=== PATIENT | female | born 2000 | race Asian ===

== ENCOUNTER 2021-05-13 19:48 | Emergency (ER) | payer BC, MEDICAID ==
[~2021-05-13] VITALS: Ht 167.6 cm; Wt 48.5 kg
[2021-05-13 20:21] VITALS: BP_SYST 112
[2021-05-13] MEDS ORDERED: ASPIRIN 81 MG TAB.CHEW PO ONE (20:45)
[2021-05-13 21:06] LABS: BASOPHILS % (AUTO) 0.5 % (0.0-2.0); EOSINOPHILS # (AUTO) 0.1 K/uL (0.0-0.4); EOSINOPHILS % (AUTO) 2.4 % (0.0-4.0); HEMATOCRIT 39.7 % (36-48); HEMOGLOBIN 13.1 g/dL (12.0-16.0); LYMPHOCYTES # (AUTO) 2.2 K/uL (1.0-5.5); LYMPHOCYTES % (AUTO) 38.6 % (20.5-51.5); MEAN CORPUSCULAR HEMOGLOBIN 27 pg (27-31); MEAN CORPUSCULAR HGB CONC 33 % (32-36); MEAN CORPUSCULAR VOLUME 82 fL (79.0-98.0); MONOCYTES # (AUTO) 0.4 K/uL (0.0-1.0); MONOCYTES % (AUTO) 7.9 % (1.7-9.3); NEUTROPHILS # (AUTO) 2.9 K/uL (1.8-7.7); NEUTROPHILS % (AUTO) 50.6 % (40.0-70.0); PLATELET COUNT (AUTO) 175 K/uL (130-430); RED BLOOD CELL COUNT(AUTO) 4.86 MIL/uL (4.2-6.2); RED CELL DISTRIBUTION WIDTH 13.5 % (9.0-15.0); WHITE BLOOD COUNT (AUTO) 5.7 K/uL (4.8-10.8)
[2021-05-13 21:28] LABS: CREATININE 0.71 mg/dL (0.55-1.30)
[2021-05-13 21:46] LABS: TOTAL BILIRUBIN 0.3 mg/dL (0.0-1.0)
[2021-05-13 21:47] LABS: ALBUMIN 4.4 g/dL (3.4-4.8)
[2021-05-13 23:45] VITALS: BP_SYST 135
== END 2021-05-13 23:45 | disposition home or self-care (01) ==
LOC: SED 19:48
DX: R07.89 Other chest pain (principal)
CPT/HCPCS: 36415; 71045; 80053; 83690; 83880; 84484; 84702; 85025; 93005; 99285

== ENCOUNTER 2021-05-15 00:27 | Emergency (ER) | payer MEDICAID ==
[2021-05-15 00:50] VITALS: BP_SYST 127
--- NOTE | 2021-05-15 00:50 | NUR ---
Patient to ER bed 7 to gown for evaluation. Side rails up. Report given to self.
--- NOTE | 2021-05-15 01:05 | NUR ---
Urine specimen collected and analyzed in ER (dip). Results given to ALEX VANCE.
--- NOTE | 2021-05-15 01:08 | NUR ---
ER Dr. Michael at bedside examining patient.
[2021-05-15] MEDS ORDERED: OMEP40CA20 PO (01:45)
[2021-05-15] MEDS ORDERED: IBUP-1969 PO (01:45)
[2021-05-15] MEDS ORDERED: KETOROLAC TROMETHAMINE 60 MG/2 ML VIAL IM ONE (01:45)
[2021-05-15] MEDS ORDERED: MAG HYDROX/AL HYDROX/SIMETH 30 ML, DICYCLOMINE HCL 20 MG, LIDOCAINE VISCOUS 2% 15ML (PO... PO ONE ×3 (01:45)
[2021-05-15] MEDS ORDERED: ONDA4TAB5 PO (01:45)
--- NOTE | 2021-05-15 01:54 | NUR ---
patient medicated as ordered. will observe for any adverse reaction. bed to low position sr up, continue to monitor level of comfort.
--- NOTE | 2021-05-15 02:38 | NUR ---
Patient given written and verbal discharge instructions and verbalizes understanding. ER MD discussed with patient the results and treatment provided. Patient in stable condition. ID arm band removed. Rx of ibuprofen, omeprazole, and zofran odt given. Patient educated on pain management and to follow up with PMD. Pain Scale 0. Opportunity for questions provided and answered. Medication side effect fact sheet provided.
[2021-05-15 02:49] VITALS: BP_SYST 105
== END 2021-05-15 02:38 | disposition home or self-care (01) ==
LOC: SED 00:27
DX: R10.13 Epigastric pain (principal)
CPT/HCPCS: 81002; 81025; 96372; 99283; J1885; J2001